=== PATIENT | female | born 1945 | race Caucasian/White ===

== ENCOUNTER → 2016-04-18 | Day surgery (SDC) | payer MEDICARE, OTHER ==
[~2016-04-18] VITALS: Ht 170.2 cm; Wt 100.0 kg
[~2016-04-18] MED LIST: 0.9% Sodium Chloride 1,000 ML IV SCH; ASPI-973 PO; CHOL100043 PO; LOSA100T29 PO; RANI150T11 PO; SIMV20TA4 PO; Sodium Chloride LOK Flush 10 mL Syringe IV PRN; fentaNYL-PF 50 mCg/mL 2 mL Inj IVPUSH PRN
[2016-04-18 07:55] VITALS: BP 165/94; PULSE 93; RESP 14; O2SAT 97
--- NOTE | 2016-04-18 08:55 | PCM.ENDCOL ---
Colonoscopy Date of Service: Apr 18, 2016 Physician Constantine Puga MD Indication for Procedure Screening and family history of colon cancer Pre Procedure Diagnosis: Same as indication Post Procedure Dx & Findings: Polyp hemorrhoids Procedure Colonoscopy PROCEDURE IN DETAIL: Prep adequate Withdrawal time 13 minutes After unremarkable rectal examination the Olympus video colonoscope was inserted patient's anal canal and was advanced to cecum. Landmarks were identified including the ileocecal valve and appendiceal orifice. Scope was withdrawn systematically. Visualized colonic mucosa showed healthy shiny mucosa with normal healthy-appearing vasculature. In the ascending colon there was a 1 mm polyp which was removed completely using cold forceps. In the transverse colon there was a 2 mm polyp which was removed completely using cold snare. In the rectum retroflexion was done which showed hemorrhoids. Anal canal was inspected carefully on the way out and hemorrhoids noted. Impression Polyps 2 status post complete removal Hemorrhoids Family history of colon cancer Recommendation Repeat colonoscopy in 5 years Presedation Assessment Risks and Benefits Informed consent was obtained from the patient after all risks and benefits including but not limited to drug reaction, infection, pain, bleeding, perforation, as well as alternatives were discussed. Patient monitoring Continuous pulse oximetry, cardiac monitoring, blood pressure monitoring, IV access, and oxygen at 2L per nasal cannula. Periprocedural Fentanyl: Fentanyl 100mcg Incrementally Midazolam: Midazolam 4mg Incrementally Complications There were no periprocedural complications identified. Post Procedure Plan Post Procedure Recommendations 1. Restrict activities today. 2. Resume normal activities in the morning. 3. Resume medications. 4. Patient informed of normal post procedure side effects as bloating, drowsiness, blood streaking in the stool. 5. average risk CRCS. If colon polyps come back as: -Hyperplastic- can repeat colonoscopy in 10 years -Tubular adenoma- repeat colonoscopy in 5 years -Tubulovillous/villous adenoma- repeat colonoscopy in 3 years -If any dysplasia- return to clinic as soon as possible 6. Please don't hesitate to call me with any questions. Constantine Puga MD Apr 18, 2016 08:55
[2016-04-18 08:58] VITALS: BP 142/72; PULSE 73; RESP 16; O2SAT 94
[2016-04-18 09:07] VITALS: BP 133/74; PULSE 73; RESP 16; O2SAT 97
--- NOTE | 2016-04-20 11:25 | PATH ---
SURGICAL PATHOLOGY Attending Physician:Constantine Puga M.D. CASE STATUS: Signed Out PATIENT NAME: RAMON VANEGAS PID: [id number] : 1945 DATE COLLECTED:04/18/2016 16:26 SPECIMEN: 1: Colon, Biopsy 2: Colon, Biopsy CLINICAL HISTORY: POLYP 1). ASCENDING COLON POLYP X1 2). TRANSVERSE COLON POLYP X1 FINAL DIAGNOSIS: 1.ASCENDING COLON POLYP: POLYPOID-SHAPED FRAGMENT OF COLON MUCOSA SECONDARY TO MARKED MUCOSAL LYMPHOID HYPERPLASIA. Negative for dysplasia and malignancy. 2.TRANSVERSE COLON POLYP: TUBULAR ADENOMA INVOLVING BOTH BIOPSY FRAGMENTS. ICD10 CODE D12.3 GROSS DESCRIPTION: The specimen is received in two formalin filled containers labeled with the patient's name. 1). The specimen is sublabeled "ascending colon polyp" and consists of 3 portions of tissue which aggregate to 0.2 x 0.2 x 0.2 CM. The specimen is entirely submitted in cassette 1A. 2). The specimen is sublabeled "transverse colon polyp" and consists of 2 portions of tissue which aggregate to 0.2 x 0.2 x 0.2 CM. The specimen is entirely submitted in cassette 2A. 04/18/2016 [facility] MICRO DESCRIPTION: See diagnosis. ICD-9 CODES: CPT CODES: 1: 08539 2: 32008 Electronically Signed Out Anival Dubon MD [facility] [address], [place] [address] Technical component performed at [facility], [facility] [address], [place], [address]
== END | disposition home or self-care (01) ==
LOC: END 00:31
PROVIDERS: ATTEND Internal Medicine
DX: Z12.11 Encounter for screening for malignant neoplasm of colon (principal); Z80.0 Family history of malignant neoplasm of digestive organs; D12.3 Benign neoplasm of transverse colon; K63.5 Polyp of colon; K64.9 Unspecified hemorrhoids; I10 Essential (primary) hypertension
CPT/HCPCS: 45380; 45385; 88305; 99153; G0500; J2250; J3010; J7030